=== PATIENT | male | born 1995 | race Caucasian/White ===

== ENCOUNTER 2023-12-19 12:39 | Emergency (ER) | payer OTHER, SELFPAY ==
[2023-12-19 13:45] VITALS: BP 153/78; PULSE 70; RESP 17; TEMP 36.6; O2SAT 98; BMI 20.7
--- NOTE | 2023-12-19 15:41 | DI.RAD.S_ITS ---
PROCEDURE: XR HAND LT MIN 3V INDICATIONS: laceration below dorsal 2nd MCP joint TECHNIQUE: 3 views of the hand(s) acquired. COMPARISON: None. FINDINGS: Bones: No fractures or dislocations. Carpal bones are normally aligned. No suspicious bony lesions. Soft tissues: No suspicious soft tissue calcifications. IMPRESSION: No acute bony abnormality. Dictated by: Neptali Casey M.D. on 12/19/2023 at 16:14 Approved by: Neptali Casey M.D. on 12/19/2023 at 16:14
--- NOTE | 2023-12-19 15:42 | ED.WOUNDLAC ---
HPI - Wound/Laceration <Shae Hidalgo PA-C - Last Filed: 12/19/23 20:06> General Chief Complaint: Wound/Laceration Stated Complaint: Cut Left 3 fingers Time Seen by Provider: 12/19/23 15:41 Source: patient Mode of arrival: Ambulatory History of Present Illness HPI narrative: Mr. Barone is a pleasant 28-year-old male who presents to the emergency department for a laceration to his left hand that occurred [employer]. Patient reports he was at work when a piece of sheet metal sliced the back of his left hand. Reports that he does have old injury to the left hand that causes decreased movement. Bleeding controlled with direct pressure. States his last tetanus shot was 6 months ago. Denies any other injuries. Related Data Home Medications Medication Instructions Recorded Confirmed No Known Home Medications 12/19/23 12/19/23 Allergies Allergy/AdvReac Type Severity Reaction Status Date / Time No Known Drug Allergies Allergy Verified 12/19/23 13:50 Review of Systems <Shae Hidalgo PA-C - Last Filed: 12/19/23 20:06> Review of Systems ROS Unobtainable: All systems reviewed & are unremarkable except as noted in HPI and below Patient History <Shae Hidalgo PA-C - Last Filed: 12/19/23 20:06> Social History Smoking Status: Never smoker Smoking Status: Never smoker alcohol intake frequency: a few times a week Substance Use Type: does not use Exam <Shae Hidalgo PA-C - Last Filed: 12/19/23 20:06> Narrative Exam Narrative: GENERAL: 28 year old patient appears stated age. Well-developed patient, in no acute distress. HEAD: Atraumatic. Normocephalic. CARDIOVASCULAR: Regular rate and rhythm. RESPIRATORY: Nonlabored respirations. Speaking in clear full sentences. MUSK: Left hand with approximately 5 cm linear laceration on the dorsal aspect just proximal to the 2nd MCP joint. Bleeding controlled on exam. Limited flexion of 2nd digit due to prior injury, full and isolated extension at the 2nd D IP, PIP, MCP. NEURO: AOx3. SKIN: Brisk cap refill. Initial Vital Signs Initial Vital Signs: Vital Signs Temperature 98 F 12/19/23 13:45 Pulse Rate 70 12/19/23 13:45 Respiratory Rate 17 12/19/23 13:45 Blood Pressure 153/78 H 12/19/23 13:45 Pulse Oximetry 98 12/19/23 13:45 Oxygen Delivery Method Room Air 12/19/23 13:45 <Amaya Cortés MD - Last Filed: 12/24/23 07:13> Initial Vital Signs Initial Vital Signs: Vital Signs Temperature 98 F 12/19/23 13:45 Pulse Rate 70 12/19/23 13:45 Respiratory Rate 17 12/19/23 13:45 Blood Pressure 153/78 H 12/19/23 13:45 Pulse Oximetry 98 12/19/23 13:45 Oxygen Delivery Method Room Air 12/19/23 13:45 Procedures <Shae Hidalgo PA-C - Last Filed: 12/19/23 20:06> Laceration Repair Laceration 1: Time of procedure: 17:10 Site: hand Side (If applicable): left Size (cm): 5 Depth: simple, single layer Local Anesthetic: lidocaine 1% and with epi Amount of anesthesia used (mL): 4 Pre-repair: wound explored and irrigated extensively Skin layer closed with: nylon Skin layer suture size: 4-0 Number of sutures: 5 Technique: simple, interrupted Course <Shae Hidalgo PA-C - Last Filed: 12/19/23 20:06> Orders Ordered: Discontinued Medications Lidocaine/Epinephrine (Lidocaine 1% W/Epi) 4 ml INJ INTRA-OP ONE Stop: 12/19/23 15:42 Last Admin: 12/19/23 15:52 Dose: 4 ml Documented By: CECELIA Vital Signs Vital signs: Vital Signs - 8 hr 12/19/23 13:45 12/19/23 17:35 Temperature 98 F Pulse Rate 70 72 Respiratory Rate 17 18 Blood Pressure 153/78 H 120/76 Pulse Oximetry 98 100 Oxygen Delivery Method Room Air Room Air <Amaya Cortés MD - Last Filed: 12/24/23 07:13> Orders Ordered: Discontinued Medications Lidocaine/Epinephrine (Lidocaine 1% W/Epi) 4 ml INJ INTRA-OP ONE Stop: 12/19/23 15:42 Last Admin: 12/19/23 15:52 Dose: 4 ml Documented By: CECELIA Vital Signs Vital signs: Vital Signs - 8 hr 12/19/23 13:45 12/19/23 17:35 Temperature 98 F Pulse Rate 70 72 Respiratory Rate 17 18 Blood Pressure 153/78 H 120/76 Pulse Oximetry 98 100 Oxygen Delivery Method Room Air Room Air MDM - Wound/Laceration <Shae Hidalgo PA-C - Last Filed: 12/19/23 20:06> Imaging Data Left Hand X-Ray: My Impression: No radiopaque foreign body on left hand x-ray Radiologist's Impression: FINDINGS: Bones: No fractures or dislocations. Carpal bones are normally aligned. No suspicious bony lesions. Soft tissues: No suspicious soft tissue calcifications. IMPRESSION: No acute bony abnormality. MDM Narrative Medical decision making narrative: 28-year-old male presents to the emergency department for a left hand laceration that occurred prior to arrival. Dorsal left hand was cut with sheet metal. Tdap was done 6 months ago patient reports. Differential diagnosis includes but not limited to laceration, foreign body, etc.. On exam patient has a linear, 5 cm laceration that is rather superficial. Wound was irrigated extensively. X-ray negative for foreign body. Wound was cleansed and repaired using 5 sutures. Advised patient to have sutures removed in 7 days. We discussed signs and symptoms of infection and proper wound care. Discussed ER return precautions and advised to follow up with PCP in 7 days for removal. Patient is agreeable to plan and stable for discharge. Discharge Plan Departure Patient Disposition: Home Clinical Impression: Laceration Laceration of hand, left Qualifiers: Encounter type: initial encounter Foreign body presence: without foreign body Qualified Code(s): S61.412A - Laceration without foreign body of left hand, initial encounter Instructions: DI for Laceration Repair Activity Restrictions/Additional Instructions: Today we placed 5 sutures. They need to be removed in 7 days. You may do this here, at the walk-in clinic, or with your primary care doctor. The dressing on your wound should be kept dry and intact for the next 12-24 hours. After this, you may remove the dressing and wash the wound with warm soapy water. Please keep the wound clean, dry, covered until the sutures are removed. You may use antibiotic ointment or Vaseline to keep the wound covered. Avoid soaking your wound in any bodies of water. Return to the emergency department if you develop increased redness, swelling, drainage or streaking redness around the wound as these may be signs of infection. Return to the ER for any new or worsening symptoms, or other concerns. You may take ibuprofen and/or Tylenol if needed for pain. Prescriptions: No Action No Known Home Medications Stand Alone Forms: Patient Portal/API/Survey ED Sign-out <Amaya Cortés MD - Last Filed: 12/24/23 07:13> Cosign ED Attending Cosignature Attestation: I was immediately available in the department for consultation throughout this patient's visit. Amaya Cortés MD
[2023-12-19] MEDS: LIDOCAINE 1% W/EPI 4 ML INJ (15:52)
--- NOTE | 2023-12-19 16:05 | PC.NURSE ---
Addendum entered by Meryl Be R.N. 12/19/23 16:08: edit: 3.5cm Original Note: Pt reports getting cut by sheet metal on left hand. Bleeding mostly controlled. Wound washed. Clean, approx 2-3 inch laceration on top of left hand. Pt states he has gotten his tetanus in the last year. Pt reports having repairs done on the left hand in the past and states because of this he has altered feeling. Pt able to move all fingers. Good cap refill. Wound irrigated.
[2023-12-19 17:35] VITALS: BP 120/76; PULSE 72; RESP 18; O2SAT 100
== END 2023-12-19 17:43 | disposition home or self-care (01) ==
PROVIDERS: Emergency Provider Physician Assistant
DX: S61.412A Laceration without foreign body of left hand, initial encounter (principal); W26.9XXA Contact with unspecified sharp object(s), initial encounter
CPT/HCPCS: 12002; 73130; 99283